=== PATIENT | female | born 1985 | race Caucasian/White ===

== ENCOUNTER 2020-08-24 10:14 | Emergency (ER) | payer MEDICAID ==
[~2020-08-24] VITALS: Ht 167.6 cm; Wt 84.0 kg
[2020-08-24] MEDS ORDERED: LEVETIRACETAM 1000MG PREMIX 100 ML IV ONE (10:45)
[2020-08-24 11:23] LABS: BASOPHILS % 0.7 % (0.0-2.0); EOSINOPHILS % 2.1 % (0.0-5.0); HEMOGLOBIN. 13.5 g/dL (12.0-16.0); LYMPHOCYTES % 15.4 % (20.0-50.0); MEAN CORPUSCULAR HEMOGLOBIN 31.8 pg (28.0-32.0); MEAN CORPUSCULAR VOLUME 91.8 fL (81.0-99.0); MEAN PLATELET VOLUME 7.5 fl (7.4-10.4); MONOCYTES % 7.1 % (2.0-8.0); NEUTROPHILS % 74.7 % (40.0-76.0); PLATELET 371 x1000/uL (130-400); RED BLOOD CELL COUNT 4.24 mill/uL (4.2-5.4); RED CELL DISTRIBUTION WIDTH 13.1 % (11.6-14.6)
[2020-08-24 11:28] LABS: CHLORIDE 110 mEq/L (98-107)
[2020-08-24 11:44] LABS: HCG SCREEN NEGATIVE
[2020-08-24] MEDS ORDERED: KEPP500 MT (13:43)
[2020-08-24 14:02] VITALS: BP 121/51
== END 2020-08-24 14:04 | disposition home or self-care (01) ==
LOC: ER 10:14
DX: G40.909 Epilepsy, unspecified, not intractable, without status epilepticus (principal)
CPT/HCPCS: 36415; 80053; 84703; 85025; 93005; 96365; 99284; J1953